=== PATIENT | male | born 1970 | race Caucasian/White ===

== ENCOUNTER 2019-04-13 13:05 | Emergency (ER) | payer OTHER ==
[~2019-04-13] VITALS: Ht 175.3 cm; Wt 104.8 kg
[2019-04-13 13:10] VITALS: BP 137/84
--- NOTE | 2019-04-13 13:10 | NUR ---
PT AMBULATED TO ER BED 05
--- NOTE | 2019-04-13 13:11 | NUR ---
AMANDA AT BEDSIDE FOR EKG
--- NOTE | 2019-04-13 13:20 | NUR ---
DR NORTON AT BEDSIDE
[2019-04-13] MEDS ORDERED: NITROGLYCERIN 0.4 MG TAB SL ONE (13:25)
[2019-04-13] MEDS ORDERED: ASPIRIN 81 MG TAB.CHEW PO ONE (13:25)
--- NOTE | 2019-04-13 13:38 | NUR ---
PT STATES HIS PAIN LEVEL IS 0/10 AT THIS TIME. NO PAIN AT ALL. MADE AWARE. DAISY NOT TO GIVE ANOTHER NITRO DOSE IF PAIN IS ZERO. PT CONFIRMS PAIN 0/10 AT THIS TIME. WILL CONTINUE TO MONITOR PT.
[2019-04-13 13:51] LABS: BASOPHILS # (AUTO) 0.1 K/uL (0.00-0.22); BASOPHILS % (AUTO) 0.8 % (0.0-2.0); EOSINOPHILS # (AUTO) 0.4 K/uL (0-0.4); EOSINOPHILS % (AUTO) 3.4 % (0.0-4.0); HEMOGLOBIN 14.8 g/dL (12.0-18.0); LYMPHOCYTES # (AUTO) 2.5 K/uL (2.0-11.5); LYMPHOCYTES % (AUTO) 23.5 % (20.5-51.1); MEAN CORPUSCULAR HEMOGLOBIN 31 pg (27-31); MEAN CORPUSCULAR HGB CONC 34 g/dL (33-37); MEAN CORPUSCULAR VOLUME 89.1 fL (80-94); MONOCYTES # (AUTO) 0.8 K/uL (0.8-1.0); MONOCYTES % (AUTO) 7.3 % (1.7-9.3); NEUTROPHILS # (AUTO) 6.9 K/uL (1.8-7.7); PLATELET COUNT (AUTO) 312 K/uL (140-450); RED BLOOD CELL COUNT(AUTO) 4.82 MIL/uL (4.20-6.10); RED CELL DISTRIBUTION WIDTH 12.8 % (11.6-13.7); WHITE BLOOD COUNT (AUTO) 10.7 K/uL (4.8-10.8)
[2019-04-13 14:03] LABS: ANION GAP 11.7 (8-16); CARBON DIOXIDE 27.1 mmol/L (21-32); CREATININE 1.1 mg/dL (0.7-1.3); POTASSIUM 3.8 mmol/L (3.5-5.1)
[2019-04-13 14:08] LABS: PROTHROMBIN TIME 9.3 secs (10.8-13.4)
[2019-04-13 14:09] LABS: ALBUMIN 4.2 g/dL (3.4-5.0); TOTAL BILIRUBIN 0.6 mg/dL (0.0-1.0)
--- NOTE | 2019-04-13 14:18 | NUR ---
CHECKED ON PT. PROVIDED TISSUE PAPER. NO S/SX OF DISTRESS NOTED. DENIES ANY CP. DENIES ,N,V. O2 SAT 95% ON RA. DENIES ANY SOB AT THIS TIME. RESTING COMFORTABLY IN HIS BED. WILL CONTINUE TO MONITOR PT.
--- NOTE | 2019-04-13 15:07 | NUR ---
TRANSFER PAPER SIGNED BY PAPER. NO S/SX OF DISTRESS NOTED. DENIES ANY CHEST PAIN. WILL CONTIUE TO MONITOR PT. PT TO TRANSFER TO [facility].
--- NOTE | 2019-04-13 15:29 | NUR ---
[facility] HERE FOR PATIENT PICKUP.
--- NOTE | 2019-04-13 15:32 | NUR ---
RECEIVED CALL FROM [facility], WILL GO [facility] [address] OLSON ATTENDING. PHONE NUMBER FOR REPORT [phone].
--- NOTE | 2019-04-13 15:37 | NUR ---
CALLED [facility] AND GAVE REPORT TO VITALIY RAVI [phone]. PT BEING TRANSFERED TO [facility] ED. VS STABLE. [facility] TRANSFERING THE PT. NO S/SX OF DISTRESS. DENIES ANY CP AT THIS TIME. PT LEFT HIS CAR KEYS AT ED, MOM [employer] ZACARIAS TO WASTEWATER MANAGER HIS CAR KEYS. CHARGE NURSE AWARE. PUT THE NUT SIFTER THE KEYS.
[2019-04-13 15:42] VITALS: BP 129/80
--- NOTE | 2019-04-13 15:42 | NUR ---
Patient to be transferred to [facility]. Is being transferred due to HIGHER LEVEL OF CARE. Receiving facility has accepting physician and available space. ER physician has signed transfer form. Patient or responsible alliance party has agreed to transfer and signed form. Patient belongings inventoried and will be sent with patient. Copy of nursing notes, lab reports, EKG, Physicians Orders and X-rays to be sent with patient. Report called to VITALIY RAVI at receiving facility. [facility] ambulance service has been called for transfer. PT ON THE WAY TO [facility].
--- NOTE | 2019-04-13 15:45 | NUR ---
PT MOTHER PICKED HIS CAR KEYS.
== END 2019-04-13 15:42 | disposition short-term general hospital (02) ==
LOC: MED 13:05
DX: I48.2 Chronic atrial fibrillation (principal); R42 Dizziness and giddiness
CPT/HCPCS: 36415; 71045; 80053; 83880; 84443; 84484; 85025; 85610; 85730; 93005; 99285; Q0092